=== PATIENT | female | born 1985 | race Caucasian/White ===

== ENCOUNTER 2021-07-04 13:38 | Inpatient (IN) ==
[2021-07-04] MEDS ORDERED: Lactated Ringers 1000 ml BAG 1,000 ML IV SCH (15:00)
[2021-07-04] MEDS: Betamethasone 6 mg/ml 5 ml VIAL IM SCH (15:17)
[2021-07-05] MEDS: Betamethasone 6 mg/ml 5 ml VIAL IM SCH (15:09)
[2021-07-05 16:48] LABS: Hematocrit 30 % (35-47); Hemoglobin 9.8 g/dL (12.0-16.0); Mean Corpuscular HGB Conc 33 g/dL (31-36); Mean Corpuscular Hemoglobin 28 pg (27-31); Mean Corpuscular Volume 83 fL (80-97); Mean Platelet Volume 8.3 fL (7.4-10.4); Platelet Count 264 10^3/uL (150-450); Red Blood Count 3.54 10^6 /uL (3.70-4.87); Red Cell Distribution Width 15 % (10-15)
== END 2021-07-07 11:26 | disposition home or self-care (01) | DRG 566 ==
LOC: MCHOBOUT 13:38 → MCHOB 13:38 → OBSVTOIN 14:46
PROVIDERS: ADMIT Obstetrics & Gynecology; ATTEND Obstetrics & Gynecology